=== PATIENT | female | born 1985 | race Caucasian/White ===

== ENCOUNTER 2016-10-08 08:21 | Emergency (ER) | payer OTHER ==
[2016-10-08 08:28] VITALS: BP 100/56; PULSE 88; TEMP 98.3; BMI 34.7
--- NOTE | 2016-10-08 09:52 | PDOC ---
History of Present Illness - General Chief Complaint: Cold Symptoms Stated Complaint: SORE THROAT Time Seen by Provider: 10/08/16 08:43 History Source: Patient Exam Limitations: No Limitations - History of Present Illness Initial Comments: 10/08/16 09:49 pt is ~ 5 weeks with Body aches; nasal congestion, no fever Past History - Past Medical History Allergies/Adverse Reactions: Allergies Allergy/AdvReac Type Severity Reaction Status Date / Time Penicillins Allergy Mild Difficulty Verified 10/08/16 08:26 Breathing Home Medications: Ambulatory Orders Fenofibrate 50 mg PO DAILY 10/08/16 Asthma: No Cancer: No Cardiac Disorders: No Diabetes: No HTN: No Hypercholesterolemia: Yes Seizures: No Thyroid Disease: No Other medical history: DENIES. - Surgical History Abdominal Surgery: Yes - Psycho/Social/Smoking Cessation Hx Anxiety: No Suicidal Ideation: No Smoking Status: No Smoking History: Never smoked Have you smoked in the past 12 months: No Number of Cigarettes Smoked Daily: 0 Hx Alcohol Use: No Drug/Substance Use Hx: No Substance Use Type: None Hx Substance Use Treatment: No Review of Systems - Review of Systems Constitutional: Yes: Malaise. No: Fever HEENTM: Yes: Tearing, Nose Congestion Respiratory: Yes: Cough. No: Wheezing, Hemoptysis Cardiac (ROS): No: Symptoms Reported ABD/GI: No: Diarrhea, Nausea, Vomiting : No: Symptoms Reported, Burning, Dysuria, Incontinence, Pain *Physical Exam - Vital Signs Last Vital Signs Temp Pulse Resp BP Pulse Ox 98.3 F 88 18 100/56 100 10/08/16 08:25 10/08/16 08:25 10/08/16 08:25 10/08/16 08:25 10/08/16 08:25 - Physical Exam General Appearance: Yes: Appropriately Dressed. No: Apparent Distress HEENT: positive: TMs Normal, Pharyngeal Erythema, Nasal Congestion. negative: TM Bulging, TM Dull, TM Erythema Neck: positive: Supple. negative: Rigid, Lymphadenopathy (R), Lymphadenopathy ( L) Respiratory/Chest: positive: Lungs Clear. negative: Rhonchi, Stridor, Wheezing Cardiovascular: positive: Regular Rhythm ED Treatment Course - ADDITIONAL ORDERS Additional order review: 10/08/16 09:10 Influenza Types A,B Antigen (AMAYA) - Final Nasopharyngeal Swab - Final 10/08/16 09:10 Group A Strep Rapid Antigen - Final Throat Medical Decision Making - Medical Decision Making 10/08/16 09:51 URI symptoms; negative Strep/ Flu *DC/Admit/Observation/Transfer Diagnosis at time of Disposition: Acute upper respiratory infection - Discharge Dispostion Disposition: HOME Condition at time of disposition: Stable Admit: No - Patient Instructions Additional Instructions: Please see local MD this week if symptoms worsen
== END 2016-10-08 09:58 | disposition home or self-care (01) ==
LOC: SUPCPDRO 08:21 → JERFT 08:21
DX: O99.89 Other specified diseases and conditions complicating pregnancy, childbirth and the puerperium (principal); J06.9 Acute upper respiratory infection, unspecified; Z3A.01 Less than 8 weeks gestation of pregnancy
CPT/HCPCS: 87070; 87430; 87804; 99281-25

== ENCOUNTER 2017-06-09 05:45 | Inpatient (IN) | payer OTHER ==
[2017-06-09] MEDS ORDERED: CITRIC ACID/SODIUM CITRATE 30 ML UNIT-DOSE CUP PO ONE ×2 (06:00→08:16)
[2017-06-09] MEDS ORDERED: ELECTROLYTE-148 SOLN 500 ML IV ONE (06:00)
[2017-06-09 06:30] VITALS: BMI 41.1
[2017-06-09] MEDS ORDERED: ELECTROLYTE-148 SOLN 1,000 ML IV SCH ×2 (06:30→08:30)
[2017-06-09] MEDS ORDERED: PHENYLEPHRINE HCL 10 MG/1 ML SINGLE DOSE VIAL ONE (08:10)
[2017-06-09] MEDS ORDERED: morphine SULFATE/Preservative Free 0.5 MG/ML (1cc Syringe) ONE (08:10)
[2017-06-09] MEDS ORDERED: ePHEDrine SULFATE 50 MG/1 ML AMPULE ONE (08:11)
--- NOTE | 2017-06-09 08:22 | HP ---
Past Medical History - Admission Chief Complaint: Elective History of Present Illness: 32 yo @ 39 weeks gestation, with previous , is Pre op for repeat C -Section. History Source: Patient Limitations to Obtaining History: No Limitations - Past Medical History ...: 3 ...Para: 1 ...Term: 1 ...: 0 ...Spon : 0 ...Induced : 1 ...Multiple Gestation: 0 ...LMP: 09/03/16 ... Weeks Gestation by Dates: 39.6 ...EDC by Dates: 06/10/17 ...EDC by Sono: 06/16/16 - Past Surgical History Past Surgical History: Yes: Hx Myomectomy: No Hx Transabdominal Cerclage: No - Smoking History Smoking history: Never smoked Have you smoked in the past 12 months: No Aproximately how many cigarettes per day: 0 - Alcohol/Substance Use Hx Alcohol Use: No History of Substance Use: reports: None - Social History Usual Living Arrangement: Yes: With Spouse History of Recent Travel: No Home Medications - Allergies Allergies/Adverse Reactions: Allergies Allergy/AdvReac Type Severity Reaction Status Date / Time Penicillins Allergy Severe Hives Verified 06/08/17 13:12 - Home Medications Home Medications: Ambulatory Orders Vit 108/Iron/Folic AC [ One Tablet] 1 tab PO DAILY 05/11/17 Family Disease History - Family Disease History Family History: Unremarkable Review of Systems - Review of Systems Constitutional: reports: No Symptoms Eyes: reports: No Symptoms HENT: reports: No Symptoms Neck: reports: No Symptoms Cardiovascular: reports: No Symptoms Respiratory: reports: No Symptoms Gastrointestinal: reports: No Symptoms Genitourinary: reports: No Symptoms Breasts: reports: No Symptoms Reported Musculoskeletal: reports: No Symptoms Integumentary: reports: No Symptoms Neurological: reports: No Symptoms Endocrine: reports: No Symptoms Hematology/Lymphatic: reports: No Symptoms Psychiatric: reports: No Symptoms Pain Intensity: 0 Physical Exam - Maternity Vital Signs: Vital Signs Temperature 97.7 F 06/09/17 06:20 Pulse Rate 99 H 06/09/17 06:20 Respiratory Rate 20 06/09/17 06:20 Blood Pressure 133/83 06/09/17 06:20 O2 Sat by Pulse Oximetry (%) Constitutional: Yes: Well Nourished Eyes: Yes: Conjunctiva Clear HENT: Yes: Atraumatic Neck: Yes: Supple Cardiovascular: Yes: Regular Rate and Rhythm Lungs: Clear to auscultation - Abdominal Exam/OB Number of Fetuses: Single Presentation: Vertex Contractions: No - Vaginal Exam/OB Presentation: Vertex/Position - Physical Exam ...Motor Strength: WNL Psychiatric: Yes: Alert, Oriented Problem List - Problems (1) Delivery by elective section Code(s): O82 - ENCOUNTER FOR DELIVERY WITHOUT INDICATION Assessment/Plan IUP @ 39 weeks Previous Pre op for repeat Consent signed Anesthesia to see patient
[2017-06-09] MEDS ORDERED: CLINDAMYCIN PHOSPHATE 600 MG/4 ML VIAL ONE (08:24)
[2017-06-09] MEDS ORDERED: OXYTOCIN 10 UNITS/ML VIAL ONE (08:30)
[2017-06-09] MEDS ORDERED: MIDAZOLAM HCL 2 MG/2 ML SINGLE DOSE VIAL ONE (08:38)
[2017-06-09] MEDS ORDERED: METHYLERGONOVINE MALEATE 0.2 MG/1 ML AMP IM PRN (09:26)
--- NOTE | 2017-06-09 09:29 | OP ---
Operative Note - Note: Operative Date: 06/09/17 Pre-Operative Diagnosis: Elective Operation: Repeat Low Transverse Surgeon: Edda Bowers Expressive Music Therapist: Kings Massey Anesthesia: Spinal Specimens Removed: Placenta Estimated Blood Loss (mls): 600
[2017-06-09] MEDS ORDERED: OXYTOCIN 20 UNITS in 0.9% NS 20 UNIT/1,000 ML INFUS.BAG IV SCH (09:30)
[2017-06-09] MEDS ORDERED: ONDANSETRON 4 MG/2 ML VIAL IVPUSH PRN (10:06)
[2017-06-09] MEDS ORDERED: IBUPROFEN 800 MG/8 ML IJ IVPB ONE (10:25)
[2017-06-09] MEDS ORDERED: OXYTOCIN 20 UNITS in 0.9% NS 20 UNIT/1,000 ML INFUS.BAG IV ONE (10:26)
[2017-06-09] MEDS: FERROUS SO4 325 MG TABLET (FP) PO SCH ×2 (10:34→22:55)
[2017-06-09] MEDS: PRENATAL VITAMINS W/ FOLIC ACID TABLET (FP) PO SCH (10:34)
[2017-06-09] MEDS: IBUPROFEN 800 MG/8 ML IJ IVPB PRN ×2 (10:35→21:30)
--- NOTE | 2017-06-09 14:29 | OP ---
DATE OF OPERATION: 06/09/2017 PREOPERATIVE DIAGNOSIS: Elective section at 39 weeks. POSTOPERATIVE DIAGNOSIS: Elective section at 39 weeks. PROCEDURE: Repeat low transverse section. SURGEON: Edda Bowers MD POWDER SHOVELER: ALEX Canela ANESTHESIA: Spinal. DESCRIPTION OF PROCEDURE: Patient was taken to the operating room, where spinal anesthesia was administered. Patient was then prepped and draped in proper sterile fashion. A Pfannenstiel skin incision was made and carried down through the underlying layer of fascia. The fascia was incised in the midline and extended laterally. The superior aspect of the fascial incision was then grasped with Daisy clamps, elevated, and the rectus muscle dissected out bluntly. Attention was then turned to the inferior aspect of the fascial incision, which in a similar fashion was then grasped with the Daisy clamp, elevated, and the rectus muscle dissected out bluntly. The rectus muscle was then in the midline. The peritoneum was then identified and entered sharply with the Metzenbaum scissors. This peritoneal incision was extended superiorly and inferiorly with good visualization of the bladder. Then, the vesicouterine peritoneum was then grasped with a pickup and entered sharply with the Metzenbaum scissors. This incision was extended laterally, and a bladder flap created digitally. The bladder blade was inserted. The lower uterine segment was then incised using the 10-blade, and the incision was extended laterally, and the head delivered atraumatically. Nose and mouth were suctioned, and the cord clamped, and cut. The infant was handed to the awaiting roving machine operator. The placenta was then removed manually. The uterus exteriorized and cleared of all clots and debris. The uterine incision was repaired using 0 Biosyn in a running locked fashion. The 2nd layer of the same suture was used as a means to provide excellent hemostasis. The uterus was then returned to the abdomen. The pelvis was irrigated. The peritoneum was closed using 2-0 Biosyn. The fascia was reapproximated using 0 Vicryl in a running fashion, and the skin was closed in a subcuticular fashion using 3-0 Vicryl. Patient tolerated the procedure well. Patient was then taken to PACU in stable condition. PATHOLOGY: Placenta. Mariaelena DE LA GARZA/[id number]
[2017-06-10] MEDS: IBUPROFEN 800 MG/8 ML IJ IVPB PRN (04:42)
[2017-06-10] MEDS: SIMETHICONE 80 MG TAB.CHEW (FP) PO PRN ×4 (04:42→21:38)
--- NOTE | 2017-06-10 06:23 | PN ---
Post Progress Note - Subjective Subjective: Pt seen/evaluated and doing well. Pain controlled with medications, tolerating clear diet. Ortez catheter draining clear yellow urine. Denies CP/SOB/F/C/ GIL. Lochia rubra moderate and stable/decreasing. No other complaints. Type of Delivery: Repeat C/S Vital Signs: Vital Signs Temperature 98.0 F 06/10/17 02:00 Pulse Rate 89 06/10/17 02:00 Respiratory Rate 20 06/10/17 02:00 Blood Pressure 114/55 06/10/17 02:00 O2 Sat by Pulse Oximetry (%) 100 06/09/17 10:15 Uterus: Yes: Fundus Firm, Fundus @ umbilicus Incision: Yes: Dressing dry and intact Abdomen/GI: Yes: Abdomen soft, Tender (appropriate post surgical tenderness). No: Abdominal Distention, Passing flatus Lochia: Yes: Rubra Lochia, amount: Moderate (small to moderate - decreasing appropriately) Perineum: Yes: Intact Activity: Other (to ambulate today) Problem List - Problems (1) Delivery by elective section Code(s): O82 - ENCOUNTER FOR DELIVERY WITHOUT INDICATION Assessment/Plan 32 y/o POD#1 s/p elective repeat c section and doing well - AFVSS - hgb/hct post operatively is pending - advance diet as tolerated - encourage ambulation - routine post op care
[2017-06-10] MEDS: BISACODYL 10 MG SUPP.RECT RC PRN (07:38)
[2017-06-10 07:55] LABS: BASO % 0.4 % (0-2.0); LYMPH % 12.8 % (8-40); MCH 25.3 pg (25.7-33.7); MCHC 32.2 g/dl (32.0-36.0); MEAN CELL VOLUME 78.6 fl (80-96); MEAN PLT VOLUME 8.1 fl (7.5-11.1); MONO % 5.4 % (3.8-10.2); NEUT % 80.4 % (42.8-82.8); PLATELET COUNT 225 K/MM3 (134-434); RBC 3.94 M/mm3 (3.60-5.2); RDW 16.2 % (11.6-15.6); WHITE BLOOD COUNT 11.5 K/mm3 (4.0-10.0)
[2017-06-10] MEDS: FERROUS SO4 325 MG TABLET (FP) PO SCH ×2 (09:24→21:39)
[2017-06-10] MEDS: PRENATAL VITAMINS W/ FOLIC ACID TABLET (FP) PO SCH (09:25)
[2017-06-10] MEDS ORDERED: ACETAMINOPHEN 325 MG TABLET (FP) ONE (10:24)
[2017-06-10] MEDS: oxyCODONE HCL 5 MG TABLET PO PRN ×2 (10:25→15:44)
[2017-06-10] MEDS: ACETAMINOPHEN 325 MG TABLET (FP) PO PRN ×2 (10:25→21:39)
--- NOTE | 2017-06-10 13:46 | PN ---
Progress Note (short form) - Note Progress Note: ANESTHESIOLOGY POST-OP CHECK 32F s/p repeat under spinal anesthesia POD #1. No acute complaints, denies N/V, headache, backache. Ambulating, voiding. Pain 6/10 and tolerable. Vital Signs Temperature 97.9 F 06/10/17 10:00 Pulse Rate 89 06/10/17 10:00 Respiratory Rate 20 06/10/17 10:00 Blood Pressure 123/77 06/10/17 10:00 O2 Sat by Pulse Oximetry (%) 100 06/09/17 10:15 Active Medications Bisacodyl (Dulcolax Suppository -) 10 mg RC PRN PRN PRN Reason: CONSTIPATION Last Admin: 06/10/17 07:38 Dose: 10 mg Diphenhydramine HCl (Benadryl Injection -) 25 mg IVPUSH Q4H PRN PRN Reason: Pruritis Diphtheria/Tetanus/Acell Pertussis (Boostrix -) 0.5 ml IM .ONCE ONE Stop: 06/10/17 10:01 Ferrous Sulfate (Feosol -) 325 mg PO BID [facility] Last Admin: 06/10/17 09:24 Dose: Not Given Parenteral Electrolytes (Plasma-Lyte 148 -) 1,000 mls @ 125 mls/hr IV ASDIR [facility] Last Admin: 06/09/17 07:00 Dose: 125 mls/hr Oxytocin/Sodium Chloride (Normal Saline+20 Units Oxytocin -) 20 unit in 1,000 mls @ 125 mls/hr IV ASDIR [facility] Last Admin: 06/09/17 10:34 Dose: 125 mls/hr Ibuprofen (Motrin -) 600 mg PO Q4H PRN PRN Reason: PAIN Ibuprofen (Caldolor Injection -) 800 mg IVPB Q8H PRN PRN Reason: PAIN OR FEVER Last Admin: 06/10/17 04:42 Dose: 800 mg Methylergonovine Maleate (Methergine Injection -) 0.2 mg IM Q4H PRN PRN Reason: Excessive Bleeding (L&D) Last Admin: 06/10/17 02:08 Dose: 0.2 mg Ondansetron HCl (Zofran Injection) 4 mg IVPUSH Q4H PRN PRN Reason: NAUSEA Oxycodone HCl (Roxicodone -) 5 mg PO Q4H PRN PRN Reason: PAIN LEVEL 1-5 Last Admin: 06/10/17 10:25 Dose: 5 mg Multivit/Folic Acid/Iron ( Vitamins (Sjr) -) 1 tab PO DAILY ANGELICA Last Admin: 06/10/17 09:25 Dose: Not Given Simethicone (Mylicon -) 80 mg PO Q4H PRN PRN Reason: GAS Last Admin: 06/10/17 10:26 Dose: 80 mg Gen: awake, alert No apparent anesthesia complications. Pain controlled. Continue management as per primary team.
[2017-06-10] MEDS: IBUPROFEN 600 MG TABLET (FP) PO PRN ×2 (15:43→21:39)
[2017-06-11] MEDS: SIMETHICONE 80 MG TAB.CHEW (FP) PO PRN ×4 (02:55→23:04)
[2017-06-11] MEDS: oxyCODONE HCL 5 MG TABLET PO PRN ×2 (02:55→09:57)
[2017-06-11] MEDS: IBUPROFEN 600 MG TABLET (FP) PO PRN ×4 (02:56→23:06)
--- NOTE | 2017-06-11 08:05 | PN ---
Post Progress Note Post Day: 2 Type of Delivery: Repeat C/S Vital Signs: Vital Signs Temperature 98.3 F 06/10/17 21:34 Pulse Rate 100 H 06/10/17 21:34 Respiratory Rate 20 06/10/17 21:34 Blood Pressure 112/72 06/10/17 21:34 O2 Sat by Pulse Oximetry (%) 100 06/09/17 10:15 Breast Exam: Yes: Soft Uterus: Yes: Fundus Firm Incision: Yes: Sutures intact Abdomen/GI: Yes: Abdomen soft Lochia: Yes: Serosa Lochia, amount: Moderate Extremities: Yes: Calves non-tender Perineum: Yes: Intact Activity: Ambulating - Labs Labs: CBC WBC 11.5 K/mm3 (4.0-10.0) H 06/10/17 06:00 RBC 3.94 M/mm3 (3.60-5.2) 06/10/17 06:00 Hgb 10.0 GM/dL (10.7-15.3) L D 06/10/17 06:00 Hct 31.0 % (32.4-45.2) L D 06/10/17 06:00 MCV 78.6 fl (80-96) L 06/10/17 06:00 MCH 25.3 pg (25.7-33.7) L 06/10/17 06:00 MCHC 32.2 g/dl (32.0-36.0) 06/10/17 06:00 RDW 16.2 % (11.6-15.6) H 06/10/17 06:00 Plt Count 225 K/MM3 (134-434) D 06/10/17 06:00 MPV 8.1 fl (7.5-11.1) 06/10/17 06:00 Neutrophils % 80.4 % (42.8-82.8) 06/10/17 06:00 Lymphocytes % 12.8 % (8-40) D 06/10/17 06:00 Monocytes % 5.4 % (3.8-10.2) 06/10/17 06:00 Eosinophils % 1.0 % (0-4.5) 06/10/17 06:00 Basophils % 0.4 % (0-2.0) 06/10/17 06:00 Assessment/Plan post c/s day 2 condition is stable continue current care
[2017-06-11] MEDS: PRENATAL VITAMINS W/ FOLIC ACID TABLET (FP) PO SCH (09:56)
[2017-06-11] MEDS: FERROUS SO4 325 MG TABLET (FP) PO SCH ×2 (09:56→22:12)
[2017-06-11] MEDS: BISACODYL 10 MG SUPP.RECT RC PRN (10:42)
[2017-06-11] MEDS: ACETAMINOPHEN 325 MG TABLET (FP) PO PRN ×3 (10:42→23:04)
[2017-06-11 14:06] VITALS: PULSE 88
[2017-06-11] MEDS ORDERED: DIPHTH,PERTUSS(ACELL),TET 0.5 ML DISP.SYRIN IM ONE (17:00)
[2017-06-12] MEDS: SIMETHICONE 80 MG TAB.CHEW (FP) PO PRN ×2 (07:03→12:09)
[2017-06-12] MEDS: ACETAMINOPHEN 325 MG TABLET (FP) PO PRN ×2 (07:03→12:10)
[2017-06-12] MEDS: IBUPROFEN 600 MG TABLET (FP) PO PRN ×2 (07:03→12:09)
[2017-06-12 07:53] VITALS: BP 140/80; TEMP 97.6
--- NOTE | 2017-06-12 08:28 | DS ---
Physical Exam-SHAPER AND PRESSER Vital Signs: Vital Signs Temperature 97.6 F 06/12/17 07:52 Pulse Rate 88 06/12/17 07:52 Respiratory Rate 18 06/12/17 07:52 Blood Pressure 140/80 06/12/17 07:52 O2 Sat by Pulse Oximetry (%) 100 06/09/17 10:15 Constitutional: Yes: Well Nourished, No Distress, Calm Eyes: Yes: WNL, Conjunctiva Clear HENT: Yes: WNL, Atraumatic, Normocephalic Neck: Yes: WNL, Supple, Trachea Midline Cardiovascular: Yes: WNL, Regular Rate and Rhythm Respiratory: Yes: WNL, Regular Gastrointestinal: Yes: WNL, Normal Bowel Sounds, Soft ...Rectal Exam: Yes: Deferred Renal/: Yes: WNL Pelvis: Yes: WNL External Genitalia: Yes: Normal Internal Exam Deferred: Yes Vaginal Exam: Yes: Bleeding Uterus: Yes: Firm ....Post : Yes: Uterus firm, Uterus non-tender, Moderate lochia rubra Breast(s): Yes: WNL Musculoskeletal: Yes: WNL Extremities: Yes: WNL Edema: No Integumentary: Yes: WNL Wound/Incision: Yes: Clean/Dry, Well Approximated Neurological: Yes: WNL, Alert, Oriented ...Motor Strength: WNL Psychiatric: Yes: WNL, Alert, Oriented Labs: CBC, BMP 06/10/17 06:00 Delivery - Delivery Section: Repeat Type of Anesthesia: Spinal Episiotomy/Laceration: None EBL (cc): 600 Delivery, Single - Stages of Labor Date of Delivery: 06/09/17 Time of Delivery: 08:34 Time Placenta Delivered: 08:35 - Condition of Plumbing Inspector/Landscape Laborer Present: No Gender: Female Weight: 7 lb 11 oz Position: Left, OT Total Hours ROM (Hrs/Mins): 0HRS 2MIN - 1 Minute Total Score: 9 5 Minutes Total Score: 9 - [place] Feeding Plan Initial Plan: Exclusive throughout hospitalization Discharge Summary Reason For Visit: C SECTION Current Active Problems Delivery by elective section (Acute) Procedures: Principal: repeat section Condition: Good - Instructions Diet, Activity, Other Instructions: regular diet Referrals: Edda Bowers MD [Staff Physician] - Disposition: HOME - Home Medications Comprehensive Discharge Medication List: Ambulatory Orders Vit 108/Iron/Folic AC [ One Tablet] 1 tab PO DAILY 05/11/17 motrin 600mg po q4 prn pain discharge home today
[2017-06-12 09:06] LABS: BASO % 0.6 % (0-2.0); EOS % 2.6 % (0-4.5); HEMATOCRIT 28.5 % (32.4-45.2); HEMOGLOBIN 9.2 GM/dL (10.7-15.3); MCH 25.5 pg (25.7-33.7); MCHC 32.4 g/dl (32.0-36.0); MEAN CELL VOLUME 78.5 fl (80-96); MEAN PLT VOLUME 7.9 fl (7.5-11.1); MONO % 4.4 % (3.8-10.2); NEUT % 74.4 % (42.8-82.8); PLATELET COUNT 271 K/MM3 (134-434); RBC 3.62 M/mm3 (3.60-5.2); RDW 16.7 % (11.6-15.6); WHITE BLOOD COUNT 8.7 K/mm3 (4.0-10.0)
[2017-06-12] MEDS: FERROUS SO4 325 MG TABLET (FP) PO SCH (09:14)
[2017-06-12] MEDS: PRENATAL VITAMINS W/ FOLIC ACID TABLET (FP) PO SCH (09:14)
--- NOTE | 2017-06-15 13:21 | PATH ---
Surgical Pathology Report Patient Name: CHRISTIANNE MOODY Med. Rec. #: [id number] /Age/Gender: 1985 (Age: 32) / F Account: [id number] Location: [facility] OBS/MARKETING/SALES PERSON Taken: 06/09/2017 Received: 06/13/2017 Reported: 06/15/2017 Physicians: Edda Bowers M.D. Specimen(s) Received PLACENTA Clinical History for repeat EDC 06/16/17 Final Diagnosis PLACENTA, DELIVERY: FOCALLY DISRUPTED THIRD TRIMESTER PLACENTA WITH INFARCT, THREE VESSEL UMBILICAL CORD AND UNREMARKABLE PLACENTAL MEMBRANES. Electronically Signed Akbar Jerome M.D. Gross Description The specimen is received fresh labeled placenta and is a 491 gram, 16.0 x 16.0 x 2.3 cm. placenta with attached membranes and umbilical cord. The attached membranes are ruiz, translucent with focal opacities and insert marginally. The umbilical cord measures 34 cm. in length and averages 1.2 cm. in diameter. The cord inserts eccentrically, 4 cm. to the nearest margin. No true knots or strictures are identified. Cut surface of the umbilical cord reveals 3 vessels. The surface is tejada-blue with minimal fibrin deposition and appropriate caliber vessels. The maternal surface is red-brown with focal defects. Sectioning reveals a 2.0 cm in greatest dimension intraparenchymal lesion. The remaining placental parenchyma is red-brown and spongy. Woodworking Bench Carpenter sections are submitted in 4 cassettes as follows: 1-membrane roll and umbilical cord; 2-lesion; 3-4-full thickness sections of placenta. /06/14/2017 [facility]06/14/2017
== END 2017-06-12 12:55 | disposition home or self-care (01) | DRG 540 ==
LOC: JLDR 05:45 → J3W 10:52
PROVIDERS: ADMIT Obstetrics & Gynecology; ATTEND Obstetrics & Gynecology
PROC: 10D00Z1 Extraction of Products of Conception, Low, Open Approach (ICD-10-PCS; principal; 2017-06-09)
DX: O34.211 Maternal care for low transverse scar from previous cesarean delivery (principal); Z3A.39 39 weeks gestation of pregnancy; Z37.0 Single live birth
CPT/HCPCS: 36415; 85025; 88307-TC; 90715

== ENCOUNTER 2017-09-12 16:18 | Emergency (ER) | payer OTHER ==
[2017-09-12 16:35] VITALS: BP 156/105; PULSE 94; TEMP 97.9; BMI 35.4
--- NOTE | 2017-09-12 16:35 | PDOC ---
Rapid Medical Evaluation Time Seen by Provider: 09/12/17 16:31 Medical Evaluation: Allergies Allergy/AdvReac Type Severity Reaction Status Date / Time Penicillins Allergy Severe Hives Verified 09/12/17 16:31 09/12/17 16:33 I have performed a brief in-person evaluation of this patient. The patient presents with a chief complaint of redness and swelling of skin since this am Patient reports the area looked like an insect bite when she awakened this am . Pertinent physical exam finding are NAD lungs clear bilaterally heart s1s2 redness and swelling above left elbow I have ordered the following: urine , iv access, labs ordered The patient will proceed to the ED for further evaluation. Discharge Disposition - Referrals Referrals: Akbar Zelaya [Primary Care Provider] - - Patient Instructions - Post Discharge Activity
--- NOTE | 2017-09-12 18:16 | PDOC ---
History of Present Illness - General Chief Complaint: Bite Stated Complaint: BITE ON LEFT ARM Time Seen by Provider: 09/12/17 16:31 History Source: Patient Exam Limitations: No Limitations - History of Present Illness Initial Comments: 09/12/17 18:15 The 32-year-old woman without a past medical history was presents to the emergency department with left elbow swelling times today. Patient states she woke up this morning and noted what looked like a bug bite to her left elbow. As the day progressed she noticed bats she was having increasing more pain in the elbow with increased redness. Patient denies any trauma, fevers, chills. Patient also is 3 months post delivery. Past History - Past Medical History Allergies/Adverse Reactions: Allergies Allergy/AdvReac Type Severity Reaction Status Date / Time Penicillins Allergy Severe Hives Verified 09/12/17 16:31 Home Medications: Ambulatory Orders Vit 108/Iron/Folic AC [ One Tablet] 1 tab PO DAILY 05/11/17 Asthma: No Cancer: No Cardiac Disorders: No CVA: No COPD: No DVT: No Diabetes: No HTN: Yes Hypercholesterolemia: Yes Seizures: No Thyroid Disease: No - Surgical History Abdominal Surgery: Yes - Suicide/Smoking/Psychosocial Hx Smoking Status: No Smoking History: Never smoked Have you smoked in the past 12 months: No Number of Cigarettes Smoked Daily: 0 Hx Alcohol Use: No Drug/Substance Use Hx: No Substance Use Type: None Hx Substance Use Treatment: No Review of Systems - Review of Systems Able to Perform ROS?: Yes Is the patient limited Irish proficient: No Constitutional: No: Symptoms Reported HEENTM: No: Symptoms Reported Respiratory: No: Symptoms reported Cardiac (ROS): No: Symptoms Reported ABD/GI: No: Symptoms Reported : No: Symptoms Reported Musculoskeletal: Yes: See HPI Integumentary: Yes: See HPI Neurological: No: Symptoms reported *Physical Exam - Vital Signs Last Vital Signs Temp Pulse Resp BP Pulse Ox 97.9 F 94 H 19 156/105 98 09/12/17 16:31 09/12/17 16:31 09/12/17 16:31 09/12/17 16:31 09/12/17 16:31 - Physical Exam General Appearance: Yes: Appropriately Dressed. No: Apparent Distress HEENT: positive: Normal ENT Inspection Neck: positive: Trachea midline, Supple Respiratory/Chest: positive: Lungs Clear, Normal Breath Sounds. negative: Respiratory Distress, Accessory Muscle Use Cardiovascular: positive: Regular Rhythm, Regular Rate. negative: Murmur Gastrointestinal/Abdominal: positive: Normal Bowel Sounds, Soft. negative: Tender Musculoskeletal: positive: Normal Inspection. negative: CVA Tenderness Extremity: positive: Erythema (The left elbow extending from the before meals laterally encompassing the elbow capsule.) Integumentary: positive: Normal Color, Dry, Warm, Swelling (left elbow extending from the before meals laterally encompassing the elbow capsule.) Neurologic: positive: Alert, Normal Response, Motor Strength 5/ ED Treatment Course - ADDITIONAL ORDERS Additional order review: Laboratory Results 09/12/17 17:23 Urine HCG, Qual Negative - RADIOLOGY Radiology Studies Ordered: Category Date Time Status SOFT TISSUE EXTREMITY US [US] Stat Ultrasound 09/12/17 18:04 Ordered Medical Decision Making - Medical Decision Making 09/12/17 18:18 A/P: 32-year-old female with warmth and erythema to left lateral epicondyle Erythema to left elbow from the antecubital extending over the lateral epicondyles encompassing the posterior elbow capsule and extending 10 cm superiorly Swelling and warmth noted to erythematous area Erythematous area tender. Patient unable to fully extend elbow. 2+ radial pulses present No bony tenderness present CBC, CMP, ESR, CRP, blood cultures, IV access, ultrasound of the elbow Transferred to the main emergency department for further evaluation. Sign out given to physician's clinical assistant Sheeba. *DC/Admit/Observation/Transfer Diagnosis at time of Disposition: Cellulitis - Referrals Referrals: Akbar Zelaya [Primary Care Provider] - - Patient Instructions - Post Discharge Activity
--- NOTE | 2017-09-12 18:58 | PDOC ---
*Physical Exam - Vital Signs Last Vital Signs Temp Pulse Resp BP Pulse Ox 97.9 F 94 H 19 156/105 98 09/12/17 16:31 09/12/17 16:31 09/12/17 16:31 09/12/17 16:31 09/12/17 16:31 - Physical Exam General Appearance: Yes: Nourished, Appropriately Dressed. No: Apparent Distress Extremity: positive: Normal Capillary Refill, Normal Range of Motion, Tender, Erythema (proximal R elbow), Inflammation, Other (radial pulses 2+ intact) Integumentary: positive: Dry, Warm, Erythema (R elbow) Neurologic: positive: traffic enumerator II-XII NML intact, Fully Oriented, Alert, Normal Mood/ Affect, Normal Response, Motor Strength / ED Treatment Course - ADDITIONAL ORDERS Additional order review: Laboratory Results 09/12/17 17:23 Urine HCG, Qual Negative Medical Decision Making - Medical Decision Making 09/12/17 18:56 Patient is a 32-year-old female past medical history 3 months ago, presents to emergency department today with redness and warmth to her right elbow. Patient was received as a signout from [facility]. Patient is able to range her elbow however there is a 5 cm x 6 cm round area of erythema just proximal to the right elbow. It is warm and tender to the touch. Cellulitis versus septic elbow versus DVT (less likely). Patient currently pending blood work. Sign out given to Jannie Bearden NP. *DC/Admit/Observation/Transfer Diagnosis at time of Disposition: Cellulitis - Referrals Referrals: Akbar Zelaya [Primary Care Provider] - - Patient Instructions - Post Discharge Activity
[2017-09-12 20:30] LABS: BASO % 0.4 % (0-2.0); EOS % 3.1 % (0-4.5); HEMOGLOBIN 12.5 GM/dL (10.7-15.3); LYMPH % 27.6 % (8-40); MCH 26.3 pg (25.7-33.7); MCHC 33.9 g/dl (32.0-36.0); MEAN CELL VOLUME 77.8 fl (80-96); MONO % 4.8 % (3.8-10.2); NEUT % 64.1 % (42.8-82.8); PLATELET COUNT 372 K/MM3 (134-434); RBC 4.76 M/mm3 (3.60-5.2); RDW 16.9 % (11.6-15.6); WHITE BLOOD COUNT 9.6 K/mm3 (4.0-10.0)
[2017-09-12 20:47] LABS: ALBUMIN 4.2 g/dl (3.4-5.0); ANION GAP 8 (8-16); BLOOD UREA NITROGEN 14 mg/dL (7-18); CALCIUM 9.3 mg/dL (8.5-10.1); CHLORIDE 105 mmol/L (98-107); CO2 27 mmol/L (21-32); CREATININE 0.7 mg/dL (0.55-1.02); GLUCOSE,RANDOM 96 mg/dL (74-106); SGOT/AST 21 U/L (15-37); SGPT/ALT 27 U/L (12-78); SODIUM 140 mmol/L (136-145); TOT PROT 7.8 g/dl (6.4-8.2)
[2017-09-12 20:49] LABS: ALK PHOS 83 U/L (45-117); BILIRUBIN,TOTAL 0.2 mg/dL (0.2-1.0)
--- NOTE | 2017-09-12 21:18 | PDOC ---
*Physical Exam - Vital Signs Last Vital Signs Temp Pulse Resp BP Pulse Ox 97.9 F 94 H 19 156/105 98 09/12/17 16:31 09/12/17 16:31 09/12/17 16:31 09/12/17 16:31 09/12/17 16:31 - Physical Exam Comments: 09/12/17 21:11 Sign-out received from outgoing ER provider Sheeba. Pt interviewed and examined. Ancillary studies reviewed. Labs unremarkable. Patient has area of erythema and warmth to left lateral upper arm, patient denies pain and reports itching to site. Patient states she believes she was bitten by a mosquito and that she has been scratching the site. She has full ROM to elbow and denies any pain with movement. Denies fever, chills, N/V/D. Will discharge with oral antibiotics. Area of erythema circumscribed, patient given strict return instructions. ED Treatment Course - LABORATORY CBC & Chemistry Diagram: 09/12/17 19:09 09/12/17 19:15 - ADDITIONAL ORDERS Additional order review: Laboratory Results 09/12/17 09/12/17 19:15 17:23 Sodium 140 Potassium 4.0 Chloride 105 Carbon Dioxide 27 Anion Gap 8 BUN 14 Creatinine 0.7 Creat Clearance w eGFR > 60 Random Glucose 96 Calcium 9.3 Total Bilirubin 0.2 D AST 21 ALT 27 Alkaline Phosphatase 83 Total Protein 7.8 Albumin 4.2 Urine HCG, Qual Negative 09/12/17 19:09 RBC 4.76 D MCV 77.8 L MCHC 33.9 RDW 16.9 H MPV 8.0 Neutrophils % 64.1 Lymphocytes % 27.6 D Monocytes % 4.8 Eosinophils % 3.1 Basophils % 0.4 *DC/Admit/Observation/Transfer Diagnosis at time of Disposition: Cellulitis - Discharge Dispostion Disposition: HOME Condition at time of disposition: Stable Admit: No - Prescriptions Prescriptions: Betamethasone Dipr 0.05% Oint [Diprolene] 50 gm NR BID #1 tube Clindamycin [Cleocin -] 300 mg PO Q6HPO #40 capsule - Referrals Referrals: Akbar Zelaya [Primary Care Provider] - - Patient Instructions Printed Discharge Instructions: DI for Insect Bites and Stings Additional Instructions: Please use medications as prescribed and complete the ENTIRE course of antibiotics (clindamycin). As discussed, please monitor the area of redness and swelling over the next 48 hours. Return to the ER if it spreads past the area marked, or you develop any fever, chills, nausea, vomiting, or diarrhea, pain to the site of swelling or with movement of your arm. - Post Discharge Activity
== END 2017-09-12 21:34 | disposition home or self-care (01) ==
LOC: JERFT 16:18 → JER 16:18
DX: L03.113 Cellulitis of right upper limb (principal)
CPT/HCPCS: 36415; 76882; 80053; 84703; 85025; 85651; 86140; 87040; 99282-25

== ENCOUNTER 2018-01-13 02:44 | Emergency (ER) | payer OTHER ==
[2018-01-13 03:12] VITALS: BP 145/96; PULSE 85; TEMP 98; BMI 28.3
== END 2018-01-13 03:46 | disposition left against medical advice (07) ==
LOC: JER 02:44
DX: Z53.21 Procedure and treatment not carried out due to patient leaving prior to being seen by health care provider (principal)
CPT/HCPCS: 99281-25

== ENCOUNTER 2018-06-22 03:02 | Emergency (ER) | payer OTHER ==
[2018-06-22 03:32] VITALS: TEMP 97.9; BMI 35.4
--- NOTE | 2018-06-22 03:49 | PDOC ---
Attending Attestation - Resident Resident Name: Jase North - ED Attending Attestation I have performed the following: I have examined & evaluated the patient, The case was reviewed & discussed with the resident, I agree w/resident's findings & plan, Exceptions are as noted - HPI HPI: 06/22/18 04:07 33y F hx of htn presents with epgiastric abd pain, waxing/waning since monday. Pain is pressure like in nature in the epigastrium, is non radiating. Not associated with position, food intake. no associated sob, cp. not exertional in nature. no fever/chills, cough, back pain, diarrhea, melena, bpr. prior . no prior similar episodes of pain. The patient does note she feels more gassy than usual and when it first started, the pain did improve with passing gas. - Physicial Exam PE: 06/22/18 06:11 GENERAL: The patient is awake, alert, and fully oriented, Nontoxic - in no acute distress. HEAD: Normocephalic, atraumatic. LUNGS: Breath sounds equal, clear to auscultation bilaterally. No wheezes, no rhonchi, no rales. HEART: Regular rate and rhythm, normal S1 and S2 without murmur, rub or gallop. ABDOMEN: Soft, nontender, No guarding, no rebound. . No CVA tenderness - Medical Decision Making 06/22/18 06:11 ddx - panceratitis, gastritis, gas pain pts labs unremarkble will dc with pmd fu Heart Score/ECG Review - ECG Impressions Comment:: 06/22/18 05:08 Twelve-lead EKG was performed and reviewed by me. There is normal sinus rhythm with a normal rate. Rate of 84 The axis is normal. The intervals are normal. There is normal R wave progression Nonspecific ST wave changes
[2018-06-22] MEDS ORDERED: SODIUM CHLORIDE 1,000 ML IV STA (03:53)
[2018-06-22] MEDS ORDERED: FAMOTIDINE 20 MG/50 ML IVPB 20 MG/50 ML MG IVPB ONE ×2 (03:53→04:16)
[2018-06-22] MEDS ORDERED: ONDANSETRON 4 MG/2 ML VIAL IVPUSH ONE (03:53)
[2018-06-22] MEDS ORDERED: MAG HYDROX/AL HYDROX/SIMETH 30 ML UNIT-DOSE CUP PO ONE (03:55)
[2018-06-22] MEDS ORDERED: LIDOCAINE VISCOUS 2% ORAL/TOP 20 ML UNIT-DOSE CUP MM ONE (03:55)
--- NOTE | 2018-06-22 04:12 | PDOC ---
History of Present Illness - General History Source: Patient Exam Limitations: No Limitations - History of Present Illness Initial Comments: 06/22/18 04:04 Patient is 33F with history of HTN here today complaining of epigastric abdominal pain. Describes the pain as an ache. Denies modifying factors such as movement, rest, eating, laying down. Endorses vomiting once yesterday. Patient states that her mother had heart attack at 40. Denies recent travel, estrogen use, leg swelling. Denies diarrhea, dysuria, vaginal pain, vaginal discharge. <Jase North - Last Filed: 06/22/18 05:43> <Milton Martinez - Last Filed: 06/22/18 06:17> - General Chief Complaint: Pain, Acute Stated Complaint: ABD PAIN Time Seen by Provider: 06/22/18 03:29 Past History - Past Medical History Asthma: No Cancer: No Cardiac Disorders: No CVA: No COPD: No DVT: No Diabetes: No HTN: Yes Hypercholesterolemia: Yes Seizures: No Thyroid Disease: No - Surgical History Abdominal Surgery: Yes - Suicide/Smoking/Psychosocial Hx Smoking Status: No Smoking History: Never smoked Have you smoked in the past 12 months: No Number of Cigarettes Smoked Daily: 0 Information on smoking cessation initiated: No Hx Alcohol Use: No Drug/Substance Use Hx: No Substance Use Type: None Hx Substance Use Treatment: No <Jase North - Last Filed: 06/22/18 05:43> <Milton Martinez - Last Filed: 06/22/18 06:17> - Past Medical History Allergies/Adverse Reactions: Allergies Allergy/AdvReac Type Severity Reaction Status Date / Time Penicillins Allergy Severe Hives Verified 06/22/18 03:15 Home Medications: Ambulatory Orders Betamethasone/Propylene Glyc [Betamethasone Dp Aug 0.05% Crm] 15 gm TP BID #1 cream..g. 09/12/17 Review of Systems - Review of Systems Comments:: 06/22/18 04:12 GENERAL/CONSTITUTIONAL: No fever or chills. No weakness. HEAD, EYES, EARS, NOSE AND THROAT: No change in vision.No sore throat. CARDIOVASCULAR: No chest pain or shortness of breath RESPIRATORY: No cough, wheezing, or hemoptysis. GASTROINTESTINAL: +nausea, +vomiting, no diarrhea or constipation. GENITOURINARY: No dysuria, frequency, or change in urination. MUSCULOSKELETAL: No joint or muscle swelling or pain. No neck or back pain. SKIN: No rash NEUROLOGIC: No headache, vertigo, loss of consciousness, or change in strength/ sensation. ALLERGIC/IMMUNOLOGIC: No hives or skin allergy. <Jase North - Last Filed: 06/22/18 05:43> *Physical Exam - Vital Signs Last Vital Signs Temp Pulse Resp BP Pulse Ox 97.9 F 98 H 18 147/95 97 06/22/18 03:16 06/22/18 03:16 06/22/18 03:16 06/22/18 03:16 06/22/18 03:16 - Physical Exam Comments: 06/22/18 04:13 GENERAL: Awake, alert, and fully oriented, in no acute distress HEAD: No signs of trauma, normocephalic, atraumatic EYES: PERRLA, EOMI, sclera anicteric, conjunctiva clear ENT: Auricles normal inspection, hearing grossly normal, nares patent, oropharynx clear without exudates. Moist mucosa NECK: Normal ROM, supple, no lymphadenopathy, JVD, or masses LUNGS: No distress, speaks full sentences, clear to auscultation bilaterally HEART: Regular rate and rhythm, normal S1 and S2, no murmurs, rubs or gallops, peripheral pulses normal and equal bilaterally. ABDOMEN: Soft, nontender, normoactive bowel sounds. No guarding, no rebound. No masses EXTREMITIES: Normal inspection, Normal range of motion, no edema. No clubbing or cyanosis. NEUROLOGICAL: Cranial nerves II through XII grossly intact. Normal speech, normal gait, no focal sensorimotor deficits SKIN: Warm, Dry, normal turgor, no rashes or lesions noted. <Jase North - Last Filed: 06/22/18 05:43> - Vital Signs Last Vital Signs Temp Pulse Resp BP Pulse Ox 97.9 F 88 18 142/86 99 06/22/18 03:16 06/22/18 06:11 06/22/18 06:11 06/22/18 06:11 06/22/18 06:11 <Milton Martinez - Last Filed: 06/22/18 06:17> Moderate Sedation - Procedure Monitoring Vital Signs: Procedure Monitoring Vital Signs Temperature 97.9 F 06/22/18 03:16 Pulse Rate 98 H 01/11/19 03:16 Respiratory Rate 18 06/22/18 03:16 Blood Pressure 147/95 06/22/18 03:16 O2 Sat by Pulse Oximetry (%) 97 06/22/18 03:16 <Jase North - Last Filed: 06/22/18 05:43> - Procedure Monitoring Vital Signs: Procedure Monitoring Vital Signs Temperature 97.9 F 06/22/18 03:16 Pulse Rate 88 06/22/18 06:11 Respiratory Rate 18 06/22/18 06:11 Blood Pressure 142/86 06/22/18 06:11 O2 Sat by Pulse Oximetry (%) 99 06/22/18 06:11 <Milton Martinez - Last Filed: 06/22/18 06:17> ED Treatment Course - LABORATORY CBC & Chemistry Diagram: 06/22/18 04:23 06/22/18 04:23 <Jase North - Last Filed: 06/22/18 05:43> - LABORATORY CBC & Chemistry Diagram: 06/22/18 04:23 06/22/18 04:23 - ADDITIONAL ORDERS Additional order review: Laboratory Results 06/22/18 06/22/18 06/22/18 04:23 04:23 04:23 Sodium 138 Potassium 3.7 Chloride 102 Carbon Dioxide 27 Anion Gap 8 BUN 11 Creatinine 0.6 Creat Clearance w eGFR > 60 Random Glucose 98 Calcium 9.4 Total Bilirubin 0.7 AST 15 ALT 30 Alkaline Phosphatase 91 Creatine Kinase 107 Troponin I < 0.02 Total Protein 7.8 Albumin 3.8 Lipase 107 Urine Color Yellow Urine Appearance Clear Urine pH 5.0 D Ur Specific [place] 1.017 Urine Protein 2+ H Urine Glucose (UA) Negative Urine Ketones Negative Urine Blood 1+ H Urine Nitrite Negative Urine Bilirubin Negative Urine Urobilinogen Negative Ur Leukocyte Esterase Negative Urine WBC (Auto) 1 Urine RBC (Auto) 1 Ur Epithelial Cells Rare Urine Mucus Rare 06/22/18 04:23 RBC 5.18 MCV 78.6 L MCHC 32.5 RDW 14.9 D MPV 8.0 Neutrophils % 71.7 Lymphocytes % 21.8 D Monocytes % 4.0 Eosinophils % 2.2 Basophils % 0.3 - Medications Given in the ED: ED Medications Discontinued Medications Generic Name Dose Route Start Last Admin Trade Name Freq PRN Reason Stop Dose Admin Al Hydroxide/Mg Hydroxide 30 ml 06/22/18 03:55 06/22/18 04:28 Mylanta Oral Suspension - PO 06/22/18 03:56 30 ml ONCE ONE Administration Famotidine/Sodium Chloride 20 mg in 50 mls @ 100 mls/hr 06/22/18 03:53 04:28 Pepcid 20 Mg Premixed Ivpb - IVPB 06/22/18 04:22 100 mls/hr ONCE ONE Administration Sodium Chloride 1,000 mls @ 1,000 mls/hr 06/22/18 03:53 06/22/18 04:28 Normal Saline - IV 06/22/18 04:52 1,000 mls/hr ASDIR STA Administration Lidocaine HCl 20 ml 06/22/18 03:55 06/22/18 04:28 Xylocaine 2% Viscous Oral - MM 06/22/18 03:56 20 ml ONCE ONE Administration Ondansetron HCl 4 mg 06/22/18 03:53 06/22/18 04:28 Zofran Injection IVPUSH 06/22/18 03:54 4 mg ONCE ONE Administration <Milton Martinez - Last Filed: 06/22/18 06:17> Medical Decision Making - Medical Decision Making 06/22/18 04:18 Patient is 33F here today with epigastric pain. Vitals normal and stable. DDx is weighted towards gastritis, but will evaluate for ACS given family history of acs at young age. 1 trop given duration of symptoms of several days. Will treat empirically for gastritis. PERC negative. 06/22/18 04:50 EKG shows NSR with rate of 84. No st elevations/depressions. Normal axis. Normal intervals. Nonspecific t wave abnormality. 06/22/18 05:43 CBC, CMP reassuring. Trop undetectable. UA clear. Pain improved, patient has GI and PCP follow up. Will discharge with PCP/GI follow up. Return precautions given. Will discharge home. <Jase North - Last Filed: 06/22/18 05:43> *DC/Admit/Observation/Transfer - Discharge Dispostion Decision to Admit order: No <Jase North - Last Filed: 06/22/18 05:43> <Milton Martinez - Last Filed: 06/22/18 06:17> Diagnosis at time of Disposition: Gastritis Qualifiers: Gastritis type: unspecified gastritis Chronicity: unspecified Gastritis bleeding: presence of bleeding unspecified Qualified Code(s): K29.70 - Gastritis , unspecified, without bleeding Proteinuria Qualifiers: Proteinuria type: unspecified Qualified Code(s): R80.9 - Proteinuria, unspecified - Discharge Dispostion Disposition: HOME - Referrals Referrals: Saroj Feldman MD [Primary Care Provider] - - Patient Instructions Printed Discharge Instructions: DI for Gastritis Additional Instructions: Please follow up with your PCP and/or GI doctor this week. There was protein found in your urine, please follow up with your doctor to have this evaluated. Please return if you have any new, worsening or concerning symptoms, especially increasing pain, fever and vomiting. Please take zantac and maalox for your pain. - Post Discharge Activity
[2018-06-22] MEDS ORDERED: LIDOCAINE VISCOUS 2% ORAL/TOP 20 ML UNIT-DOSE CUP ONE (04:15)
[2018-06-22] MEDS ORDERED: MAG HYDROX/AL HYDROX/SIMETH 30 ML UNIT-DOSE CUP ONE (04:15)
[2018-06-22] MEDS ORDERED: ONDANSETRON 4 MG/2 ML VIAL ONE (04:16)
[2018-06-22 04:48] LABS: BASO % 0.3 % (0-2.0); EOS % 2.2 % (0-4.5); HEMATOCRIT 40.7 % (32.4-45.2); HEMOGLOBIN 13.2 GM/dL (10.7-15.3); LYMPH % 21.8 % (8-40); MCH 25.6 pg (25.7-33.7); MCHC 32.5 g/dl (32.0-36.0); MEAN CELL VOLUME 78.6 fl (80-96); NEUT % 71.7 % (42.8-82.8); PLATELET COUNT 360 K/MM3 (134-434); RBC 5.18 M/mm3 (3.60-5.2); RDW 14.9 % (11.6-15.6); WHITE BLOOD COUNT 10.4 K/mm3 (4.0-10.0)
[2018-06-22 05:09] LABS: URINE APPEARANCE CLEAR; URINE BILIRUBIN NEGATIVE (<2.0 mg/dL); URINE COLOR YELLOW; URINE GLUCOSE (UA) NEGATIVE (NEGATIVE); URINE KETONE NEGATIVE (NEGATIVE); URINE LEUK ESTERASE NEGATIVE (NEGATIVE); URINE NITRITE NEGATIVE (NEGATIVE); URINE PROTEIN 2+ (NEGATIVE); URINE UROBILINOGEN NEGATIVE mg/dL (0.2-1.0)
[2018-06-22 05:11] LABS: EPI CELLS RARE /HPF (FEW); URINE MUCUS RARE
[2018-06-22 05:28] LABS: ALBUMIN 3.8 g/dl (3.4-5.0); ALK PHOS 91 U/L (45-117); ANION GAP 8 MMOL/L (8-16); BILIRUBIN,TOTAL 0.7 mg/dL (0.2-1); BLOOD UREA NITROGEN 11 mg/dL (7-18); CALCIUM 9.4 mg/dL (8.5-10.1); CHLORIDE 102 mmol/L (98-107); CO2 27 mmol/L (21-32); CREATININE 0.6 mg/dL (0.55-1.3); GLUCOSE,RANDOM 98 mg/dL (74-106); LIPASE 107 U/L (73-393); POTASSIUM 3.7 mmol/L (3.5-5.1); SGOT/AST 15 U/L (15-37); SGPT/ALT 30 U/L (13-61); SODIUM 138 mmol/L (136-145); TOT PROT 7.8 g/dl (6.4-8.2)
[2018-06-22 06:12] VITALS: BP 142/86; PULSE 88
--- NOTE | 2018-06-22 11:53 | EKG ---
Test Reason : Blood Pressure : / mmHG Vent. Rate : 084 BPM Atrial Rate : 084 BPM P-R Int : 158 ms QRS Dur : 084 ms QT Int : 386 ms P-R-T Axes : 041 054 024 degrees QTc Int : 456 ms NORMAL SINUS RHYTHM NONSPECIFIC T WAVE ABNORMALITY ABNORMAL ECG WHEN COMPARED WITH ECG OF 28-AUG-2017 15:43, NO SIGNIFICANT CHANGE WAS FOUND Confirmed by CINDY JON, ROMY ([id number]) on 06/22/2018 11:53:10 AM Referred By: Confirmed By:ROMY WHITE MD
== END 2018-06-22 06:12 | disposition home or self-care (01) ==
LOC: JER 03:02
PROC: 3E033GC Introduction of Other Therapeutic Substance into Peripheral Vein, Percutaneous Approach (ICD-10-PCS; principal; 2018-06-22)
PROC: 3E033GC Introduction of Other Therapeutic Substance into Peripheral Vein, Percutaneous Approach (ICD-10-PCS; 2018-06-22)
DX: K29.70 Gastritis, unspecified, without bleeding (principal); R80.9 Proteinuria, unspecified; I10 Essential (primary) hypertension; E78.00 Pure hypercholesterolemia, unspecified
CPT/HCPCS: 36415; 80053; 81003; 81015; 82550; 83690; 84484; 85025; 93005; 93010; 96365; 96375; 99283-25; J7030

== ENCOUNTER 2018-08-09 08:12 | Day surgery (SDC) | payer OTHER ==
[2018-08-08 12:29] VITALS: BMI 36.8
[2018-08-09] MEDS ORDERED: TETRACAINE/BENZOCAINE/BUTAMBEN 20 GM SPR TP ONE (10:08)
[2018-08-09 10:45] VITALS: TEMP 98.7
[2018-08-09 11:39] VITALS: BP 126/82; PULSE 78
--- NOTE | 2018-08-10 17:15 | PATH ---
Surgical Pathology Report Patient Name: CHRISTIANNE MOODY [facility]. Rec. #: [id number] /Age/Gender: 1985 (Age: 33) / F Account: [id number] Location: U-ENDOSCOPY Taken: 08/09/2018 Received: 08/09/2018 Reported: 08/10/2018 Physicians: Bartolome Muñoz D.O. Specimen(s) Received A: BX DUODENUM B: BX BODY AND ANGULARIS C: BX BODY OF STOMACH POLYPS Clinical History Stomach pain Postoperative diagnosis: Gastric polyps Final Diagnosis A. DUODENUM, BIOPSY: DUODENUM MUCOSA WITH NO DIAGNOSTIC ABNORMALITIES. NO HISTOLOGIC EVIDENCE OF CELIAC DISEASE. B. BODY AND ANGULARIS, BIOPSY: GASTRIC MUCOSA WITH MILD CHRONIC GASTRITIS. IMMUNOSTAIN FOR H. PYLORI IS NEGATIVE. NEGATIVE FOR INTESTINAL METAPLASIA. C. BODY OF STOMACH, POLYPS, BIOPSY: FUNDIC GLAND POLYP, MULTIPLE FRAGMENTS. IMMUNOSTAIN FOR H. PYLORI IS NEGATIVE. NEGATIVE FOR INTESTINAL METAPLASIA. Electronically Signed Jake Lazcano M.D. Gross Description A. Received in formalin, labeled "duodenum biopsy" are 2 ruiz, irregular portions of soft tissue measuring 0.3 and 0.4 cm. in greatest dimension. The specimens are submitted in toto in one cassette. B. Received in formalin, labeled "angularis and body biopsy" are 4 ruiz, irregular portions of soft tissue ranging from 0.2-0.7 cm. in greatest dimension. The specimens are submitted in toto in one cassette. C. Received in formalin, labeled "body of stomach polyps" are 4 ruiz, irregular portions of soft tissue ranging from 0.3-0.4 cm. in greatest dimension. The specimens are submitted in toto in one cassette. 08/09/2018 [facility]08/09/2018
== END 2018-08-09 11:39 | disposition home or self-care (01) ==
LOC: JASU-ENDO 08:12
PROVIDERS: ATTEND Internal Medicine Gastroenterology
PROC: 0DB68ZX Excision of Stomach, Via Natural or Artificial Opening Endoscopic, Diagnostic (ICD-10-PCS; 2018-08-09)
PROC: 0DB98ZX Excision of Duodenum, Via Natural or Artificial Opening Endoscopic, Diagnostic (ICD-10-PCS; principal; 2018-08-09 10:30)
DX: K29.50 Unspecified chronic gastritis without bleeding (principal); K31.7 Polyp of stomach and duodenum
CPT/HCPCS: 84703; 88305-TC; 88342-TC

== ENCOUNTER 2019-06-29 12:45 | Emergency (ER) | payer OTHER ==
[2019-06-29 12:54] VITALS: BP 177/90; PULSE 110; TEMP 98.4; BMI 38.6
--- NOTE | 2019-06-29 13:54 | PDOC ---
History of Present Illness - General Chief Complaint: Cold Symptoms Stated Complaint: COLD SYMPTOMS Time Seen by Provider: 06/29/19 12:57 History Source: Patient Exam Limitations: No Limitations - History of Present Illness Initial Comments: 06/29/19 13:52 HISTORY OF PRESENT ILLNESS: 34-year-old woman presents emergency department for evaluation of moist productive cough and intermittent fevers over the past 5 to 6 days. Patient was seen by her primary doctor told she had bronchitis and was treated with azithromycin at that time. Patient finished the last dose today. Patient's child was recently diagnosed with influenza after experiencing similar symptoms. Patient has been taken Tylenol and Motrin for fevers and/or pain as well as increasing her dry hydration. No recent travel or sick contacts. PAST MEDICAL HISTORY: HTN SURGICAL HISTORY: Denies ALLERGIES: Penicillin REVIEW OF SYSTEMS General/Constitutional: See HPI HEENT: Denies change in vision. Denies ear pain or discharge. Denies sore throat. Cardiovascular: Denies chest pain or shortness of breath. Respiratory: See HPI Gastrointestinal: Denies nausea, vomiting, diarrhea or constipation. Denies rectal bleeding. Genitourinary: Denies dysuria, frequency, or change in urination. Musculoskeletal: Denies joint or muscle swelling or pain. Denies neck or back pain. Skin and breasts: Denies rash or easy bruising. Neurologic: Denies headache, vertigo, loss of consciousness, or loss of sensation. Psychiatric: Denies depression or anxiety. Endocrine: Denies increased thirst. Denies abnormal weight change. Hematologic/Lymphatic: Denies anemia, easy bleeding, or history of blood clots. Allergic/Immunologic: Denies hives or skin allergy. Denies latex allergy. PHYSICAL EXAM General Appearance: Well-appearing, appropriately dressed. No apparent distress , no intoxication. HEENT: EOMI, PERRLA, normal ENT inspection, normal voice, TMs normal, pharynx normal. No conjunctival pallor. No photophobia, scleral icterus. Neck: Supple. Trachea midline. No tenderness, rigidity, carotid bruit, stridor , lymphadenopathy, or thyromegaly. Respiratory/Chest: Lungs CTAB. No shortness of breath, chest tenderness, respiratory distress, accessory muscle use. No crackles, rales, rhonchi, stridor , wheezing, dullness Cardiovascular: RRR. S1, S2. No JVD, murmur, bradycardia, tachycardia. Vascular Pulses: Dorsalis-Pedis (R): 2+, Dorsalis-Pedis (L): 2+ Gastrointestinal/Abdominal: Normal bowel sounds. Abdomen soft, non-distended. No tenderness or rebound tenderness. No organomegaly, pulsatile mass, guarding, hernia, hepatomegaly, splenomegaly. Lymphatic: No adenopathy, tenderness. Musculoskeletal/Extremities: Normal inspection. FROM of all extremities, normal capillary refill. Pelvis Stable. No CVA tenderness. No tenderness to extremities, pedal edema, swelling, erythema or deformity. Integumentary: Appropriate color, dry, warm. No cyanosis, erythema, jaundice or rash Neurologic: bundle packer II-XII intact. Fully oriented, alert. Appropriate mood/affect. Motor strength 5/5. No appreciable EOM palsy, facial droop or sensory deficit. 06/29/19 13:54 Past History - Past Medical History Allergies/Adverse Reactions: Allergies Allergy/AdvReac Type Severity Reaction Status Date / Time Penicillins Allergy Severe Hives Verified 06/29/19 12:54 Home Medications: Ambulatory Orders Hydrochlorothiazide 25 mg PO DAILY 08/08/18 Amlodipine Besylate 5 mg PO DAILY 05/25/19 Escitalopram Oxalate [Lexapro -] 5 mg PO DAILY 05/25/19 Anemia: No Asthma: No Cancer: No Cardiac Disorders: No CVA: No COPD: No CHF: No DVT: No Dementia: No Diabetes: No GI Disorders: No Disorders: No HTN: Yes Hypercholesterolemia: Yes Liver Disease: No Seizures: No Thyroid Disease: No - Surgical History Abdominal Surgery: Yes Orthopedic Surgery: No - Immunization History Immunization Up to Date: Yes - Psycho Social/Smoking Cessation Hx Smoking Status: No Smoking History: Never smoked Have you smoked in the past 12 months: No Number of Cigarettes Smoked Daily: 0 Hx Alcohol Use: No Drug/Substance Use Hx: No Substance Use Type: None Hx Substance Use Treatment: No *Physical Exam - Vital Signs Last Vital Signs Temp Pulse Resp BP Pulse Ox 98.4 F 110 H 18 177/90 H 100 06/29/19 12:51 06/29/19 12:51 06/29/19 12:51 06/29/19 12:51 06/29/19 12:51 Medical Decision Making - Medical Decision Making 06/29/19 13:53 A/P: 34-year-old woman with 1 week of moist productive cough and intermittent fevers Patient most likely with a bronchitis given absence of body aches. May be influenza but given that she is outside the window for treatment I will defer testing at this time. I will defer chest x-ray as patient is already being treated for pneumonia as an outpatient and this would not change treatment plan. Supportive treatment has been discussed with the patient was verbalized understanding of discharge instructions I discussed the physical exam findings, ancillary test results and final diagnoses with the patient. I answered all of the patient's questions. The patient was satisfied with the care received and felt comfortable with the discharge plan and treatment plan. The patient will call their primary care physician within 24 hours to arrange follow-up and will return to the Emergency Department with any new, persistent or worsening symptoms. Discharge - Discharge Information Problems reviewed: Yes Clinical Impression/Diagnosis: Bronchitis Condition: Stable Disposition: HOME - Admission No - Follow up/Referral Referrals: Saroj Feldman MD [Primary Care Provider] - - Patient Discharge Instructions Patient Printed Discharge Instructions: DI for Acute Bronchitis Additional Instructions: Rest, drink lots of fluids: Teas, water, soups, Pedialyte Saltwater gargles Steamy showers/seem to face break up mucus Avoid contact with others until fevers and cough resolved Lots of handwashing and good hygiene Continue [id number] medications for symptomatic relief Tylenol or Motrin for fever and pain Followup with private physician in one to 2 days as needed Return to emergency department for worsened symptoms, fevers, dehydration - Post Discharge Activity Work/Back to School Note: Back to Work
== END 2019-06-29 13:57 | disposition home or self-care (01) ==
LOC: JERFT 12:45
DX: J40 Bronchitis, not specified as acute or chronic (principal); I10 Essential (primary) hypertension; E78.00 Pure hypercholesterolemia, unspecified; Z88.0 Allergy status to penicillin
CPT/HCPCS: 99281-25

== ENCOUNTER 2020-08-20 21:45 | Emergency (ER) | payer OTHER ==
[2020-08-20 21:52] VITALS: TEMP 98.6; BMI 35.4
[2020-08-20 23:16] VITALS: BP 158/95; PULSE 98
[2020-08-20] MEDS ORDERED: predniSONE 20 MG TABLET (UD) PO ONE (23:16)
[2020-08-20] MEDS ORDERED: predniSONE 20 MG TABLET (UD) ONE (23:18)
== END 2020-08-20 23:28 | disposition home or self-care (01) ==
LOC: JER 21:45
DX: G51.0 Bell's palsy (principal)
CPT/HCPCS: 99283-25; C9803; U0003

== ENCOUNTER 2021-12-27 14:11 | Emergency (ER) | payer OTHER ==
[2021-12-27 14:22] VITALS: BP 142/84; TEMP 98.2; BMI 35.4
[2021-12-27 14:59] VITALS: PULSE 99
== END 2021-12-27 15:40 | disposition home or self-care (01) ==
LOC: JERFT 14:11
DX: F41.9 Anxiety disorder, unspecified (principal)
CPT/HCPCS: 71046-TC-FY; 93005; 93010; 99284-25

== ENCOUNTER 2022-06-27 07:51 | Emergency (ER) | payer OTHER ==
[2022-06-27 08:09] VITALS: TEMP 98; BMI 37.2
[2022-06-27 10:38] LABS: HCG,QUALITATIVE URINE Negative
[2022-06-27 10:56] LABS: EPI CELLS 12 /uL (0-25.1); HYALINE CASTS 1 /uL (0-3.1); PH,URINE 5.5 (5.0-8.0); URINE APPEARANCE CLEAR; URINE BACTERIA 24 /uL (0-1359); URINE BILIRUBIN NEGATIVE (NEGATIVE); URINE COLOR YELLOW; URINE GLUCOSE (UA) NEGATIVE (NEGATIVE); URINE KETONE NEGATIVE (NEGATIVE); URINE LEUK ESTERASE NEGATIVE (NEGATIVE); URINE NITRITE NEGATIVE (NEGATIVE); URINE PROTEIN 3+ (NEGATIVE); URINE RBC 23 /uL (0-23.9); URINE UROBILINOGEN 0.2 mg/dL (0.2-1.0); URINE WBC 10 /uL (0-25.8)
[2022-06-27 12:11] VITALS: BP 136/82; PULSE 90; RESP 18
== END 2022-06-27 12:11 | disposition home or self-care (01) ==
LOC: JER 07:51
DX: N83.201 Unspecified ovarian cyst, right side (principal)
CPT/HCPCS: 76830-TC; 81003; 84703; 87086; 99284-25

== ENCOUNTER 2023-11-07 00:17 | Emergency (ER) | payer OTHER ==
[2023-11-07 00:24] VITALS: BMI 36.6
[2023-11-07] MEDS ORDERED: IBUPROFEN 600 MG TABLET (FP) PO ONE (00:47)
[2023-11-07 00:50] VITALS: PULSE 104; RESP 19; TEMP 98.4
[2023-11-07] MEDS: IBUPROFEN 600 MG TABLET (FP) PO ONE (00:52)
[2023-11-07 01:57] VITALS: BP 147/84
== END 2023-11-07 01:57 | disposition home or self-care (01) ==
LOC: JER 00:17
DX: R03.0 Elevated blood-pressure reading, without diagnosis of hypertension (principal); R51.9 Headache, unspecified; R00.2 Palpitations
CPT/HCPCS: 93005; 93010; 99283-25